=== PATIENT | male | born 1960 | race African-American/Black ===

== ENCOUNTER 2018-11-11 14:49 | Emergency (ER) | payer OTHER ==
--- NOTE | 2018-11-11 16:21 | RAD ---
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 The obturator ring is intact. No definite displaced fracture is appreciated although large osteophyte formation does limit this evaluation. Impression: No displaced right hip fracture.
--- NOTE | 2018-11-11 16:22 | RAD ---
XR Ankle Rt 3 View STANDARD History: Trauma. Fall. Comparison: None. Findings: Mild vascular calcifications. Mild enthesopathic change of the Achilles tendon insertion. N o acute fracture or malalignment. Impression: No acute fracture or malalignment.
--- NOTE | 2018-11-11 16:23 | RAD ---
XR Knee Rt 3 View History: Fall. Trauma. Comparison: None. Findings: Moderate lateral compartment joint space narrowing with osteophyte formation and genu valgu s. Mild medial soft tissue swelling. There is no muscle atrophy. Moderate vascular calcifications. Impression: Lateral compartment degenerative change. No acute fracture or malalignment.
== END 2018-11-11 17:30 | disposition home or self-care (01) ==
LOC: ERS 14:49
DX: M25.561 Pain in right knee (principal); M25.571 Pain in right ankle and joints of right foot; I10 Essential (primary) hypertension; E78.00 Pure hypercholesterolemia, unspecified; Z79.899 Other long term (current) drug therapy; W18.30XA Fall on same level, unspecified, initial encounter

== ENCOUNTER 2020-10-23 09:46 | Outpatient (CLI) | payer OTHER | END 2020-10-23 09:47 | disposition home or self-care (01) | LOC: PET 09:46 | DX: R22.2 Localized swelling, mass and lump, trunk (principal) | CPT/HCPCS: 78815; A9552 ==

== ENCOUNTER 2022-05-28 07:18 | Outpatient (CLI) | payer OTHER | END 2022-05-28 07:19 | disposition home or self-care (01) | LOC: BICULT 07:18 | PROVIDERS: ATTEND Internal Medicine Nephrology | DX: I12.9 Hypertensive chronic kidney disease with stage 1 through stage 4 chronic kidney disease, or unspecified chronic kidney disease (principal); N18.30 Chronic kidney disease, stage 3 unspecified; N28.1 Cyst of kidney, acquired; I77.89 Other specified disorders of arteries and arterioles | CPT/HCPCS: 76770; 93975 ==

== ENCOUNTER 2024-03-20 15:01 | Emergency (ER) | payer OTHER ==
[2024-03-20 16:45] LABS: #Basophils Less than 0.03 10x3/uL (0.0-0.2); %Basophils 0.2 % (0.0-1.0); %Eosinophils 1.7 % (0.0-10.0); %Lymphocytes 12.4 % (21.0-51.0); %Monocytes 11.7 % (0.0-10.0); %Neutrophils 73.7 % (42.0-75.0); Hematocrit 22.2 % (42.0-52.0); Hemoglobin 6.5 g/dL (14.0-18.0); Mean Corpuscular HGB CONC 29.3 g/dL (32.0-36.0); Mean Corpuscular Hemoglobin 30.8 pg (27.0-31.0); Mean Corpuscular Volume 105.2 fL (78.0-98.0); Mean Platelet Volume 9.1 fL (7.4-10.4); Platelet Count 301 10x3/uL (130-400); RBC Distribution Width 15.1 % (11.5-14.5); Red Blood Cell (RBC) Count 2.11 mill/uL (4.70-6.10)
[2024-03-20 17:11] LABS: ALT (SGPT) 12 U/L (8-55); AST (SGOT) 22 U/L (5-34); Albumin 2.8 g/dL (3.4-4.8); Alkaline Phosphatase 78 U/L (40-110); Anion Gap 14 mmol/L (10-20); BUN (Urea Nitrogen) 57 mg/dL (8.4-25.7); Bilirubin, Total 0.5 mg/dL (0.2-1.2); Calc. Creatinine Clearance 0 mL/min (70-130); Calcium 9.3 mg/dL (7.8-10.44); Carbon Dioxide 19 mmol/L (23-31); Chloride 108 mmol/L (98-107); Estimated GFR 29; Globulin 4.2 g/dL (2.4-3.5); Glucose 103 mg/dL (80-115); Magnesium 1.7 mg/dL (1.6-2.6); Potassium 5.6 mmol/L (3.5-5.1); Sodium 135 mmol/L (136-145)
[2024-03-20 17:13] LABS: Troponin I Less than 0.010 ng/mL (< 0.028)
[2024-03-20 18:02] LABS: Bacteria/HPF 2+ HPF (None Seen); Bilirubin Negative (Negative); Blood, Urine Trace (Negative); CAUTI Indications for Culture Dysuria,urgency,freq; Clarity Turbid (Clear); Glucose, Urine (Dipstick) Normal (Negative); Ketone, Urine Negative (Negative); Leukocyte 500 Leu/uL (Negative); Nitrite Negative (Negative); Protein, Urine (Dipstick) 50 mg/dL (Neg-Trace); RBC/HPF 0-3 HPF (0-3); Specific Gravity, Urine 1.012 (1.002-1.036); Squamous Epithelial None Seen HPF (0-3); Urobilinogen Normal mg/dL (Less than 2); WBC/HPF Greater than 50 HPF (0-3)
[2024-03-20 18:03] LABS: Urine Culture Reflex Yes Yes
[2024-03-20 20:58] LABS: Magnesium 1.7 mg/dL (1.6-2.6)
[2024-03-20] MEDS ORDERED: cefTRIAXone (ROCEPHIN) 2 GM VIAL ONE (20:59)
[2024-03-20] MEDS ORDERED: Furosemide 40 MG (4 mL) VIAL ONE (20:59)
[2024-03-21] MEDS ORDERED: Morphine 4 MG/ML VIAL ONE ×2 (03:14→09:38)
== END 2024-03-21 09:59 ==
LOC: ERS 15:01
DX: I13.0 Hypertensive heart and chronic kidney disease with heart failure and stage 1 through stage 4 chronic kidney disease, or unspecified chronic kidney disease (principal); I50.9 Heart failure, unspecified; N18.9 Chronic kidney disease, unspecified; D64.9 Anemia, unspecified; N39.0 Urinary tract infection, site not specified; K21.9 Gastro-esophageal reflux disease without esophagitis; Z79.899 Other long term (current) drug therapy
CPT/HCPCS: 36415; 36430; 51798; 71045; 80053; 81001; 83605; 83735; 83880; 84484; 85025; 86850; 86900; 86901; 87040; 87077; 87086; 87186; 93005; 96374; 96375; 96376; J0696; J1940; J2272; P9016

== ENCOUNTER 2025-02-01 06:22 | Day surgery (SDC) | payer OTHER ==
[2025-01-31 09:39] VITALS: BMI 32.5
[2025-02-01] MEDS ORDERED: PHENYLEPHRINE-NS 100 MCG/ML 10 ML SYRINGE ONE (08:55)
[2025-02-01] MEDS ORDERED: PROPOFOL 200 MG/20 ML VIAL ONE (09:12)
== END 2025-02-01 10:34 | disposition home or self-care (01) ==
LOC: SDC 06:22
PROVIDERS: ATTEND Internal Medicine
PROC: 0DJD8ZZ Inspection of Lower Intestinal Tract, Via Natural or Artificial Opening Endoscopic (ICD-10-PCS; principal; 2025-02-01)
DX: K57.30 Diverticulosis of large intestine without perforation or abscess without bleeding (principal); K64.4 Residual hemorrhoidal skin tags; K64.8 Other hemorrhoids; I12.9 Hypertensive chronic kidney disease with stage 1 through stage 4 chronic kidney disease, or unspecified chronic kidney disease; K21.9 Gastro-esophageal reflux disease without esophagitis; N18.30 Chronic kidney disease, stage 3 unspecified; Z86.0100 Personal history of colon polyps, unspecified; Z79.899 Other long term (current) drug therapy
CPT/HCPCS: J2250; J2704